=== PATIENT | male | born 1965 | race Caucasian/White ===

== ENCOUNTER 2016-12-04 08:51 | Day surgery (SDC) | payer OTHER ==
[~2016-12-04] VITALS: Ht 177.8 cm; Wt 80.0 kg
[~2016-12-04 08:51] MED LIST: ASCO100089 PO; ASPI-973 PO; CHOL500011 PO; FLUT9.9S NS; NITR0.4T6 SL; OMEP20CA11 PO; Sodium Chloride LOK Flush 10 mL Syringe IV PRN; fentaNYL-PF 50 mCg/mL 2 mL Inj IVPUSH PRN
[2016-12-04 09:27] VITALS: BP 116/65; PULSE 63; RESP 16; O2SAT 100
[2016-12-04] MEDS ORDERED: OMEG-38 PO (09:31)
[2016-12-04] MEDS: 0.9% Sodium Chloride 1,000 ML IV SCH ×2 (09:32→10:01)
[2016-12-04 10:13] VITALS: BP 109/61; PULSE 60; RESP 14; O2SAT 94
[2016-12-04 10:23] VITALS: BP 97/54; PULSE 59; RESP 12; O2SAT 95
[2016-12-04 10:33] VITALS: BP 89/55; PULSE 57; RESP 12; O2SAT 96
--- NOTE | 2016-12-04 16:26 | ENDO ---
[address] [address] ENDOSCOPY PROCEDURE PATIENT: ODETTE HOOPER : 1965 MR#: [id number] ADMIT: 12/04/2016 JOB ID: [id number] DATE: 12/04/2016 TYPE OF OPERATION: Colonoscopy with snare polypectomy. PREOPERATIVE DIAGNOSIS(ES): Colorectal cancer screening. POSTOPERATIVE DIAGNOSIS(ES): 1. A 5 mm ascending colon polyp removed by hot snare polypectomy. 2. Very small internal hemorrhoids. ANESTHESIA: 1. Fentanyl 100 mcg. 2. Versed 5 mg IV administered. COMPLICATIONS: None. BLOOD LOSS: Minimal. DESCRIPTION OF PROCEDURE: After risks and benefits were explained to the patient, informed consent was obtained. After anesthesia administered, the colonoscope was the inserted from the rectum to the cecum. Mucosa carefully examined. Prep of the patient was fair. After the procedure was done, the scope withdrawn and procedure terminated. FINDINGS: Upon inspection of the anus, no masses, hemorrhoids, ulcers, or fissures that were seen. Throughout the entire examination, there was a 5 mm ascending colon polyp removed by hot snare polypectomy. No other polyps or masses are seen. Retroflexion showed small internal hemorrhoids. IMPRESSION: 1. Very small internal hemorrhoids. 2. A 5 mm ascending colon polyp removed by hot snare polypectomy. RECOMMENDATIONS: Await pathology results. If tubular adenoma, then repeat colonoscopy in five years.
--- NOTE | 2016-12-10 16:16 | PATH ---
SURGICAL PATHOLOGY Attending Physician:Gumaro Feldman MD CASE STATUS: Signed Out * Amended * PATIENT NAME: ODETTE HOOPER PID: [id number] : 1965 DATE COLLECTED:12/04/2016 17:16 SPECIMEN: Colon, Biopsy CLINICAL HISTORY: 1). ASCENDING POLYP X1 FINAL DIAGNOSIS: Ascending Colon, Polyp, Biopsy: Portions of tubular adenoma x2; negative for high-grade dysplasia. ICD10 K63.5 This case was reviewed and interpreted by Dr. Trudy Heath. The final diagnosis is unchanged. This amendment is issued in order for the report to cross the interface and be available in the hospital electronic medical record. GROSS DESCRIPTION: The specimen is received in one formalin filled container labeled with the patient's name, sublabeled "ascending polyp x1" and consists of 2 portions of tissue which aggregate to 0.5 x 0.5 x 0.4 CM. The specimen is entirely submitted in one cassette. 12/04/2016 [facility] ICD-9 CODES: CPT CODES: 1: 40382 AMENDMENT(S): Amended: 12/10/2016 by Roz Bansal Reason:Miscellaneous The final diagnosis is unchanged. This amendment is issued in order for the report to cross the interface and be available in the hospital electronic medical record. Previous Signout Date: 12/05/2016 Electronically Signed Out Philly Hernandez MD [facility] [place] [address] Technical component performed at [facility], [address] [place] [address] [address], [address]
== END 2016-12-04 23:59 | disposition home or self-care (01) ==
LOC: END 08:51
PROVIDERS: ATTEND Internal Medicine Gastroenterology
DX: Z12.11 Encounter for screening for malignant neoplasm of colon (principal); D12.2 Benign neoplasm of ascending colon; K64.8 Other hemorrhoids; K20.0 Eosinophilic esophagitis; Z79.82 Long term (current) use of aspirin; Z88.8 Allergy status to other drugs, medicaments and biological substances
CPT/HCPCS: 45385; G0500; J7030